=== PATIENT | female | born 1950 | race Hispanic/Latino ===

== ENCOUNTER 2017-02-01 09:41 | Outpatient (CLI) | payer MEDICARE ==
--- NOTE | 2017-02-01 10:03 | SJPRAD ---
PA AND LATERAL VIEWS CHEST: Date: 02/01/17 HISTORY: Cough. FINDINGS: The heart size is borderline. No focal areas of consolidation, pneumothorax, rylee pulmonary edema, o r pleural effusions are seen. There are mild degenerative changes in the spine. IMPRESSION: No radiographic evidence of acute cardiopulmonary process. POS: [facility]
--- NOTE | 2017-02-01 10:04 | SJPRAD ---
LUMBAR SPINE 3 VIEWS: Date: 02/01/17 HISTORY: Low back pain. FINDINGS/IMPRESSION: Mild degenerative changes are present. No fracture, subluxation, or bony destruction is identified. POS: [facility]
== END 2017-02-01 09:42 | disposition home or self-care (01) ==
LOC: MWLC RAD 09:41
PROVIDERS: ATTEND Family Medicine
DX: M54.5 Low back pain (principal); R05 Cough; M47.896 Other spondylosis, lumbar region

== ENCOUNTER 2017-02-08 09:25 | Outpatient (CLI) | payer MEDICARE ==
--- NOTE | 2017-02-08 15:46 | NM ---
WHOLE BODY BONE SCAN: 02/08/17 HISTORY: 66-year-old female with left breast cancer, malignant neoplasm of upper outer quadrant of the left fe male breast, lower back pain. RADIOPHARMACEUTICAL: 33 millicuries technetium 99m-MDP intravenously. FINDINGS: Correlation is made with the lumbar spine radiograph of 02/01/17. Increased uptake in the shoulders, elbows, wrist, and ankles are consistent with degenerative changes . No other abnormal areas of tracer localization is seen to suggest metastatic disease. Tracer excre tion through the kidneys is within normal limits. IMPRESSION: No evidence of osseous metastatic disease. POS: [facility]
== END 2017-02-08 09:26 | disposition home or self-care (01) ==
LOC: NM 09:25
PROVIDERS: ATTEND Internal Medicine Hematology & Oncology
DX: C50.919 Malignant neoplasm of unspecified site of unspecified female breast (principal); M53.3 Sacrococcygeal disorders, not elsewhere classified
CPT/HCPCS: 78306; A9503

== ENCOUNTER 2017-09-26 09:17 | Outpatient (CLI) | payer MEDICARE | END 2017-09-26 09:18 | disposition home or self-care (01) | LOC: BICMAMMO 09:17 | PROVIDERS: ATTEND Internal Medicine Hematology & Oncology | DX: Z08 Encounter for follow-up examination after completed treatment for malignant neoplasm (principal); Z85.3 Personal history of malignant neoplasm of breast | CPT/HCPCS: 77066; G0279 ==

== ENCOUNTER 2017-12-10 07:56 | Outpatient (CLI) | payer MEDICARE ==
--- NOTE | 2017-12-10 09:42 | ULT ---
RIGHT UPPER QUADRANT ULTRASOUND: Date: 12/10/17 HISTORY: Right upper quadrant pain. FINDINGS: The liver demonstrates homogeneous echotexture without focal mass or intrahepatic ductal dilatation. There are mobile shadowing gallstones with thickened gallbladder wall measuring about 4.0 mm. No jac cholecystic fluid is seen. The common duct measures 2.0 mm in diameter. The tail of the pancreas is n ot visualized. The visualized portions of the pancreas and the right kidney are unremarkable. No free fluid is seen in Morison's pouch. IMPRESSION: Cholelithiasis with gallbladder wall thickening. POS: [facility]
== END 2017-12-10 07:57 | disposition home or self-care (01) ==
LOC: BICULT 07:56
PROVIDERS: ATTEND Family Medicine
DX: R10.9 Unspecified abdominal pain (principal); K80.20 Calculus of gallbladder without cholecystitis without obstruction; K82.8 Other specified diseases of gallbladder
CPT/HCPCS: 76705

== ENCOUNTER 2018-10-03 13:39 | Outpatient (CLI) | payer MEDICARE ==
--- NOTE | 2018-10-03 14:22 | MMO ---
Bilateral MAMMO Bilat Diag DDI+JIMBO. CLINICAL HISTORY: Patient is 68 years old and is seen for diagnostic exam. The patient has no family history of breast cancer. The patient has a history of Excisional Breast Biopsy procedure revealed invasive ductal left breast carcinoma in March, and Stereotactic Core Biopsy procedure revealed invasive ductal left breast carcinoma in February,. The patient has a history of left Lumpectomy in March, - invasive ductal carcinoma and left Stereotatic Biopsy in February, - invasive ductal carcinoma. VIEWS: The views performed were: bilateral craniocaudal with tomosynthesis; bilateral mediolateral oblique with tomosynthesis; and bilateral mediolateral with tomosynthesis. FILMS COMPARED: The present examination has been compared to prior imaging studies performed at [facility] on 03/16/2015, 09/14/2015, 04/18/2016 and 09/26/2017. MAMMOGRAM FINDINGS: The breasts are heterogeneously dense, which could obscure a lesion on mammography. Finding 1: There are stable benign appearing calcifications seen in both breasts. Finding 2: There is a stable post-surgical scar seen in the left breast. There are no suspicious masses, suspicious calcifications, or new areas of architectural distortion. IMPRESSION: THERE IS NO MAMMOGRAPHIC EVIDENCE OF MALIGNANCY. A ROUTINE FOLLOW-UP MAMMOGRAM IN 1 YEAR IS RECOMMENDED. THE RESULTS OF THIS EXAM WERE SENT TO THE PATIENT. ACR BI-RADS Category 2 - Benign finding MAMMOGRAPHY NOTE: 1. A negative mammogram report should not delay a biopsy if a dominant of clinically suspicious mass is present. 2. Approximately 10% to 15% of breast cancers are not detected by mammography. 3. Adenosis and dense breasts may obscure an underlying neoplasm. Reported by: BONITA FELIZ MD Electonically Signed: [id number]
== END 2018-10-03 13:40 | disposition home or self-care (01) ==
LOC: BICMAMMO 13:39
PROVIDERS: ATTEND Internal Medicine Hematology & Oncology
DX: Z08 Encounter for follow-up examination after completed treatment for malignant neoplasm (principal); Z85.3 Personal history of malignant neoplasm of breast
CPT/HCPCS: 77066; G0279

== ENCOUNTER 2018-10-30 09:00 | Day surgery (SDC) | payer MEDICARE ==
[2018-10-29 11:58] VITALS: BMI 29.2
--- NOTE | 2018-10-29 14:15 | HP ---
ADDENDUM: HISTORY OF PRESENT ILLNESS: Cassy Mcbride is a 68-year-old female, who I saw on 01/28/2018, planning for laparoscopic cholecystectomy, now presents for the same operation. She is having symptoms of right upper quadrant pain with back radiation. She is followed by Dr. Unger. Ultrasound on 12/10/2017 reveals gallstones with gallbladder wall thickening and a 2 mm bile duct. CBC is normal on 08/27/2018. Comprehensive metabolic profile normal on 08/27/2018 with bilirubin of 1.5. Transaminases otherwise normal. MEDICATIONS: 1. Synthroid. 2. Glucosamine. 3. Vitamins. 4. Fish oil. 5. The patient's metformin has been discontinued 6 months ago. She controls her diabetes with diet. PAST MEDICAL HISTORY: Breast cancer in 2013, medically treated; hypothyroidism; diabetes mellitus, diet-controlled, metformin discontinued 6 months ago; hypertension; elevated cholesterol; neuropathy. PAST SURGICAL HISTORY: In 2015, colonoscopy, normal; hernia repair in 1993; blood transfusion in 1977; oophorectomy, unilateral, 1992; left breast, wide local excision, sentinel node biopsy in March 2014; MediPort placement in 1992. SOCIAL HISTORY: Tobacco, none. Alcohol, none. REVIEW OF SYSTEMS: Noncontributory. PHYSICAL EXAMINATION: VITAL SIGNS: Weight 138 pounds, height 55 inches, blood pressure 147/61, pulse 60, temperature 98.6 degrees. HEAD, EARS, EYES, NOSE AND THROAT: Unremarkable. LUNGS: Clear to auscultation. CARDIAC: Regular rate and rhythm without murmur or gallop. ABDOMEN: Soft and nontender. No masses. No hernias. EXTREMITIES: Unremarkable. No ankle edema. ASSESSMENT AND PLAN: Symptomatic cholelithiasis. We will recommend laparoscopic video cholecystectomy. Risks of infection, bleeding, visceral and biliary injury were previously discussed. Questions answered. Job ID: [id number]
[2018-10-30] MEDS ORDERED: Fentanyl 100 MCG/2 ML VIAL ONE ×3 (09:31→11:50)
[2018-10-30] MEDS ORDERED: Levofloxacin 500 mg/D5W 100 ml Premix Bag ONE (09:32)
[2018-10-30] MEDS ORDERED: Ketorolac Tromethamine 30 MG/ML VIAL ONE (09:32)
[2018-10-30 09:57] LABS: ALT (SGPT) 28 U/L (8-55); AST (SGOT) 30 U/L (5-34); Albumin 3.9 g/dL (3.4-4.8); Alkaline Phosphatase 152 U/L (40-150); Anion Gap 10 mmol/L (10-20); BUN (Urea Nitrogen) 12 mg/dL (9.8-20.1); Calc. Creatinine Clearance 77 mL/min (70-130); Calcium 9.5 mg/dL (7.8-10.44); Carbon Dioxide 26 mmol/L (23-31); Chloride 107 mmol/L (98-107); Estimated GFR-MDRD 87; Globulin 2.8 g/dL (2.4-3.5); Glucose 177 mg/dL (80-115); Potassium 3.7 mmol/L (3.5-5.1); Protein, Total 6.7 g/dL (6.0-8.3); Sodium 139 mmol/L (136-145)
[2018-10-30 09:58] LABS: Hemoglobin 15.1 g/dL (12.0-16.0); Mean Corpuscular HGB CONC 35.7 g/dL (32.0-36.0); Mean Corpuscular Hemoglobin 34.9 pg (27.0-31.0); Mean Corpuscular Volume 97.6 fL (78.0-98.0); Mean Platelet Volume 9.3 fL (7.4-10.4); Platelet Count 92 thou/uL (130-400); Red Blood Cell (RBC) Count 4.33 mill/uL (4.20-5.40); White Blood Cell (WBC) Count 3.5 thou/uL (4.8-10.8)
[2018-10-30 09:59] LABS: #Eosinphils 0.1 thou/uL (0.0-0.7); #Lymphocytes 1.6 thou/uL (1.20-3.40); #Monocytes 0.3 thou/uL (0.11-0.59); #Neutrophils 1.6 thou/uL (1.40-6.50); %Basophils 1.3 % (0.0-1.0); %Eosinophils 2.4 % (0.0-10.0); %Lymphocytes 43.8 % (21.0-51.0); %Monocytes 8.4 % (0.0-10.0); %Neutrophils 44.1 % (42.0-75.0)
[2018-10-30 10:01] LABS: Hemoglobin A1c 7.4 % (4.0-6.0)
[2018-10-30] MEDS ORDERED: Iothalamate Meglumine 60% 50 ML VIAL FS ONE (10:09)
[2018-10-30] MEDS ORDERED: Bupivacaine HCl 0.5%/Epinephrine 1:200,000/PF 30 ml Vial ONE (10:09)
[2018-10-30 10:40] LABS: Band 4 % (5-11); Eosinophils 4 % (0-10); Lymphocytes 36 % (21-51); MDiff Complete? YES; Monocytes 2 % (0-10); Neutrophil 40 % (42-75); Platelet Morphology Comment Appears Decreased; RBC Morphology Normal; Reactive Lymphocytes 13 % (0-10)
[2018-10-30] MEDS ORDERED: Promethazine HCl 25 MG/ML VIAL ONE (12:26)
[2018-10-30 13:18] LABS: HBCM Index 0.34 S/CO (0-0.79); HBSAg Index 0.14 S/CO (0-0.99); Hep A IgM AB Non-Reactive (NonReactive); Hep A IgM S/CO 0.33 S/CO (0-0.79); Hep B Surf Ag Non-Reactive S/CO (NonReactive); Hep C IgG Ab Non-Reactive (NonReactive); Hep C Index 0.06 S/CO (0-0.79); Hepatitis B Core IgM Abs Non-Reactive (NonReactive)
[2018-10-30] MEDS ORDERED: Ondansetron ODT 4 MG TAB ONE (13:30)
--- NOTE | 2018-10-30 14:23 | OP ---
DATE OF PROCEDURE: 10/30/2018 PREOPERATIVE DIAGNOSES: Chronic cholecystitis and cholelithiasis. POSTOPERATIVE DIAGNOSES: Chronic cholecystitis and cholelithiasis with cirrhosis. PROCEDURES PERFORMED: Laparoscopic video cholecystectomy, core liver biopsies, video photography of liver. ANESTHESIA: General, local 0.5% Marcaine with epinephrine 30 mL total volume used. DESCRIPTION OF PROCEDURE: The patient was taken to the operating room. Under general anesthesia, abdomen was prepared with ChloraPrep and draped in routine fashion. Local anesthetic was infiltrated in the skin and subcutaneous tissue at each port site. Infraumbilical incision was made. Pneumoperitoneum to 15 mmHg obtained with a Veress needle, replaced with a 5 port where the laparoscope was inserted. Right subxiphoid incision was made and 11 port placed. Right subcostal incision was made at midclavicular entrance lines and 5 port was placed. Liver appeared to be cirrhotic. Video photographs were made. Fundus of the gallbladder was grasped at the cephalad. Infundibulum was grasped and reflected laterally. Cystic artery and duct were dissected free. Critical view obtained. Cystic artery and duct were double clipped proximally and divided. Gallbladder was dissected free from liver bed, obtaining good hemostasis prior to division of final peritoneal attachments. Gallbladder and contents were removed, submitted to Pathology. Core liver biopsies from the right lobe of the were liver obtained x2 and submitted to pathology. Hemostasis was gained with the cautery. Irrigant and pneumoperitoneum evacuated. All instruments were removed and all skin incisions were approximated with interrupted subdermal 4-0 Monocryl and [place] glue applied. Job ID: [id number]
--- NOTE | 2018-10-30 17:00 | EKG ---
Test Reason : PREOP Blood Pressure : / mmHG Vent. Rate : 054 BPM Atrial Rate : 054 BPM P-R Int : 176 ms QRS Dur : 088 ms QT Int : 450 ms P-R-T Axes : 018 -43 023 degrees QTc Int : 426 ms Sinus bradycardia Left axis deviation Abnormal ECG When compared with ECG of 18-MAR-2014 10:51, No significant change was found Confirmed by DR. Cris SUNSHINE ([id number]) on 10/30/2018 4:59:29 PM Referred By: RISHI Confirmed By:DR. Cris SUNSHINE
== END 2018-10-30 15:31 | disposition home or self-care (01) ==
LOC: SDC 09:00
PROVIDERS: ATTEND Specialist
PROC: 0FB14ZX Excision of Right Lobe Liver, Percutaneous Endoscopic Approach, Diagnostic (ICD-10-PCS; principal; 2018-10-30)
PROC: 0FT44ZZ Resection of Gallbladder, Percutaneous Endoscopic Approach (ICD-10-PCS; 2018-10-30)
DX: K80.10 Calculus of gallbladder with chronic cholecystitis without obstruction (principal); K74.0 Hepatic fibrosis; K74.60 Unspecified cirrhosis of liver; K76.0 Fatty (change of) liver, not elsewhere classified; M79.7 Fibromyalgia; G47.33 Obstructive sleep apnea (adult) (pediatric); E03.9 Hypothyroidism, unspecified; I10 Essential (primary) hypertension; K21.9 Gastro-esophageal reflux disease without esophagitis; E11.40 Type 2 diabetes mellitus with diabetic neuropathy, unspecified; E78.00 Pure hypercholesterolemia, unspecified; Z79.899 Other long term (current) drug therapy; Z88.8 Allergy status to other drugs, medicaments and biological substances; Z91.012 Allergy to eggs; Z91.018 Allergy to other foods
CPT/HCPCS: 36415; 80053; 80074; 83036; 85025; 88304; 88307; 88313; 93005; 93010; J0131; J0670; J1610; J1885; J1956; J2550; J3010; Q0162

== ENCOUNTER 2018-11-29 15:04 | Emergency (ER) | payer MEDICARE ==
--- NOTE | 2018-11-29 15:38 | RAD ---
TWO VIEWS CHEST: DATE: 11/29/2018. PROVIDED CLINICAL HISTORY: Chest pain. FINDINGS: Comparison 02/01/2017. Cardiac silhouette appears enlarged. Vascular calcification is noted. The l ungs are hypoinflated, without definite focal consolidation, pleural fluid, or pneumothorax apparent. IMPRESSION: No evidence for an acute cardiopulmonary process. POS: [facility]
[2018-11-29 16:10] LABS: #Lymphocytes 0.6 thou/uL (1.20-3.40); #Monocytes 0.3 thou/uL (0.11-0.59); #Neutrophils 2.9 thou/uL (1.40-6.50); %Basophils 0.7 % (0.0-1.0); %Eosinophils 0.9 % (0.0-10.0); %Lymphocytes 16.3 % (21.0-51.0); %Monocytes 7.2 % (0.0-10.0); %Neutrophils 74.9 % (42.0-75.0); Hemoglobin 14.9 g/dL (12.0-16.0); Mean Corpuscular HGB CONC 35.5 g/dL (32.0-36.0); Mean Corpuscular Hemoglobin 35.4 pg (27.0-31.0); Mean Platelet Volume 10.1 fL (7.4-10.4); Platelet Count 77 thou/uL (130-400); RBC Distribution Width 11.9 % (11.5-14.5); Red Blood Cell (RBC) Count 4.19 mill/uL (4.20-5.40); White Blood Cell (WBC) Count 3.9 thou/uL (4.8-10.8)
[2018-11-29 16:17] LABS: PTT 25.7 SEC (22.9-36.1); Prothrombin Time 12.9 SEC (12.0-14.7)
[2018-11-29 16:28] LABS: ALT (SGPT) 49 U/L (8-55); AST (SGOT) 46 U/L (5-34); Alkaline Phosphatase 179 U/L (40-110); Anion Gap 15 mmol/L (10-20); BUN (Urea Nitrogen) 9 mg/dL (9.8-20.1); Bilirubin, Total 1.3 mg/dL (0.2-1.2); CK (CPK) 62 U/L (29-168); Calc. Creatinine Clearance 0 mL/min (70-130); Calcium 10.1 mg/dL (7.8-10.44); Carbon Dioxide 25 mmol/L (23-31); Chloride 102 mmol/L (98-107); Estimated GFR-MDRD 75; Globulin 3.1 g/dL (2.4-3.5); Glucose 357 mg/dL (80-115); Lipase 31 U/L (8-78); Potassium 3.9 mmol/L (3.5-5.1); Protein, Total 7.1 g/dL (6.0-8.3); Sodium 138 mmol/L (136-145)
--- NOTE | 2018-11-29 17:02 | CT ---
CT arteriogram chest with IV contrast and 3-D imaging HISTORY: Chest pain. Dyspnea. FINDINGS: There is good contrast opacification the pulmonary arteries and thoracic aorta with normal branching of the great vessels at the aortic arch. Scattered arterial calcification. Mild bibasilar atelectasis. No lobar consolidation or pneumothorax. No mediastinal adenopathy. Degenerative changes thoracic spine. Postoperative changes of the gallbladder fossa and left breast. IMPRESSION: No CT evidence of pulmonary embolus. Atherosclerosis.
[2018-11-29] MEDS ORDERED: Ketorolac Tromethamine 30 MG/ML VIAL ONE (17:28)
== END 2018-11-29 16:07 | disposition home or self-care (01) ==
LOC: ERS 15:04
DX: J98.11 Atelectasis (principal); K21.9 Gastro-esophageal reflux disease without esophagitis; E11.9 Type 2 diabetes mellitus without complications; Z79.84 Long term (current) use of oral hypoglycemic drugs; Z79.899 Other long term (current) drug therapy
CPT/HCPCS: 71046; 71275; 80053; 82550; 83690; 84484; 85025; 85610; 85730; 93005; 94760; 96374; J1885

== ENCOUNTER 2019-01-30 08:44 | Outpatient (CLI) | payer MEDICARE ==
--- NOTE | 2019-01-30 10:13 | ULT ---
EXAM: US Hepatic Doppler PROVIDED CLINICAL HISTORY: Cirrhosis, fatty liver. COMPARISON: Right upper quadrant ultrasound 12/10/2017. FINDINGS: There is slight peripheral nodular contour of the liver which can be seen with cirrhosis. Slightly co arsened echotexture of liver is present. No focal hepatic mass/lesion is identified. The spleen has a normal sonographic appearance and is normal in size. Gallbladder is not visualized related to patient's history of prior cholecystectomy. The common duct is normal in caliber measuring 0.4 cm in diameter. Limited visualized portions of the pancreas, visualized portions of the proximal abdominal aorta, and visualized portions of the IVC demonstrate a normal sonographic appearance. Hepatic Doppler evaluation was performed with spectral analysis and color flow demonstrating arterial waveforms are seen within the hepatic and splenic arteries. Normal directional flow within the portal, splenic, and hepatic veins. IMPRESSION: 1. Subtle peripheral nodular contour of the liver with slightly coarsened echo texture of the liver. Findings are suggestive of cirrhosis. 2. Normal directional flow is seen within the hepatic, portal, and splenic veins.
== END 2019-01-30 08:45 | disposition home or self-care (01) ==
LOC: BICULT 08:44
PROVIDERS: ATTEND Internal Medicine Gastroenterology
DX: K74.60 Unspecified cirrhosis of liver (principal); K76.0 Fatty (change of) liver, not elsewhere classified; R94.5 Abnormal results of liver function studies; K76.89 Other specified diseases of liver
CPT/HCPCS: 76705

== ENCOUNTER 2019-08-22 09:28 | Outpatient (CLI) | payer MEDICARE ==
--- NOTE | 2019-08-22 10:32 | ULT ---
Ultrasound hepatic Doppler duplex: HISTORY: 69-year-old female with cirrhosis TECHNIQUE: Grayscale, color-flow, and spectral analysis, of upper abdomen. FINDINGS: Liver: Nodular margins. Coarse echotexture of parenchyma.. Pancreas: Nonspecific sonographic appearance. No pancreatic ductal dilation. Gallbladder: Surgically absent. Common duct: 5 mm. Spleen: 10 x 5.5 x 5 cm. Hepatic veins: Hepatofugal flow with appropriate Doppler waveforms. Portal vein: Hepatopetal flow demonstrated in left portal vein with appropriate Doppler waveform. Rig ht portal vein not visualized. Main portal vein color Doppler signal not demonstrated. Weak pulse Doppler signal with probably hepatopetal flow. Hepatic artery: Normal pulsatile flow. Splenic vein: Not imaged No free fluid in right upper quadrant or left upper quadrant. IMPRESSION: 1. Hepatic cirrhosis. 2. No splenomegaly. 3. Poor visualization of portal vein. No overt signs of portal venous hypertension.
== END 2019-08-22 09:29 | disposition home or self-care (01) ==
LOC: BICULT 09:28
PROVIDERS: ATTEND Internal Medicine Gastroenterology
DX: K74.60 Unspecified cirrhosis of liver (principal); R94.5 Abnormal results of liver function studies
CPT/HCPCS: 76705

== ENCOUNTER 2019-12-23 09:57 | Outpatient (CLI) | payer MEDICARE ==
[2019-12-23 17:34] LABS: Bilirubin Neg (Negative); Blood, Urine 250 (Negative); Glucose, Urine (Dipstick) Normal (Negative); Ketone, Urine Negative (Negative); Leukocyte 25 (Negative); Nitrite Negative (Negative); Protein, Urine (Dipstick) 30 mg/dl (Neg-Trace)
[2019-12-23 17:35] LABS: Hemoglobin 13.3 g/dL (12.0-16.0); Mean Corpuscular HGB CONC 35.6 G/DL (32.0-36.0); Mean Corpuscular Volume 95.7 fl (80.0-100.0); Mean Platelet Volume 12.1 fl (7.4-10.4); Platelet Count 97 10x3/uL (130-400); Red Blood Cell (RBC) Count 3.91 10x6/uL (3.90-5.20); White Blood Cell (WBC) Count 3.4 10x3/uL (4.5-11.0)
[2019-12-23 17:45] LABS: Clarity Cloudy (Clear)
[2019-12-23 17:46] LABS: Anion Gap 12 mmol/L (10-20); BUN (Urea Nitrogen) 14 mg/dL (9.8-20.1); Calc. Creatinine Clearance 0 mL/min (70-130); Calcium 8.7 mg/dL (7.8-10.44); Carbon Dioxide 24 mmol/L (23-31); Chloride 108 mmol/L (98-107); Estimated GFR-MDRD Greater than 90; Glucose 115 mg/dL (80-115); Potassium 3.9 mmol/L (3.5-5.1); Sodium 140 mmol/L (136-145)
[2019-12-23 17:46] LABS: Urine Culture Reflex No No
[2019-12-23 17:48] LABS: Bacteria/HPF Rare-Few HPF (None Seen); RBC/HPF Greater than 50 HPF (0-3); Squamous Epithelial 0-3 HPF (0-3); WBC/HPF 0-3 HPF (0-3)
[2019-12-24 10:57] LABS: SARS-CoV-2 MS2 Positive; SARS-CoV-2 N Gene Negative; SARS-CoV-2 S Gene Negative; SARS-CoV-2 by NAA Not Detected (NotDetected); SARS-CoV-2 orf1ab Negative
== END 2019-12-23 09:58 | disposition home or self-care (01) ==
LOC: LABBT 09:57
PROVIDERS: ATTEND Urology
DX: Z01.818 Encounter for other preprocedural examination (principal); N20.1 Calculus of ureter; Z20.828 Contact with and (suspected) exposure to other viral communicable diseases
CPT/HCPCS: 80048; 81001; 85027; 87086; 93005; U0003; 87635; 93010

== ENCOUNTER 2019-12-26 10:46 | Day surgery (SDC) | payer MEDICARE ==
[2019-12-25 10:42] VITALS: BMI 28.1
[~2019-12-26 10:46] MED LIST: Lidocaine 1% PF 5 ML VIAL ONE; Metoclopramide HCl 10 MG/2 ML VIAL ONE; Ondansetron PF 4 MG/2 ML Vial ONE; PHENYLEPHRINE-NS 100 MCG/ML 10 ML SYRINGE ONE; PROPOFOL 200 MG/20 ML VIAL ONE
[2019-12-26] MEDS ORDERED: Levofloxacin 500 mg/D5W 100 ml Premix Bag ONE (11:40)
[2019-12-26] MEDS ORDERED: Fentanyl 100 MCG/2 ML VIAL ONE (13:48)
[2019-12-26] MEDS ORDERED: Iothalamate Meglumine 60% 50 ML VIAL FS ONE ×2 (14:03→14:16)
[2019-12-26] MEDS ORDERED: Famotidine/PF 20 mg/2ml Vial ONE (14:05)
[2019-12-26] MEDS ORDERED: Famotidine 20 MG TAB ONE (14:05)
[2019-12-26] MEDS ORDERED: Oxybutynin 5 MG TAB ONE (15:15)
--- NOTE | 2019-12-26 15:33 | RAD ---
EXAM: XR IVP Retrograde PROVIDED CLINICAL HISTORY: Hematuria, lower abdominal pain, right ureteral calculus. COMPARISON: CT abdomen and pelvis on 12/19/2019 and single view abdomen 12/19/2019 FINDINGS/IMPRESSION: 2 intraoperative fluoroscopic images of the abdomen are submitted for interpretation. Initial image d emonstrates guidewire in place with opacification of the right renal collecting system showing mild right hydronephrosis and hydroureter. Final image demonstrates a catheter or possibly ureteral stent in place with tip overlying the right renal pelvis. Calculus at the level of the right sacral ala seen on abdominal radiograph and CT exam is not well delineated on this study. Correlation with intra operative findings is recommended.
[2019-12-26] MEDS ORDERED: HYDROcodone/Acetaminophen 5/325 mg Tablet ONE ×2 (15:52→15:53)
--- NOTE | 2019-12-26 16:55 | OP ---
DATE OF PROCEDURE: 12/26/2019 PREOPERATIVE DIAGNOSIS: Right ureteral stone. POSTOPERATIVE DIAGNOSIS: Right ureteral stone. PROCEDURES PERFORMED: Right ureteroscopy with laser lithotripsy, basket extraction, retrograde pyelogram, intraoperative interpretation of radiologic imaging and 4.8 x 20 double-J ureteral stent with strings. ANESTHESIA: General. COMPLICATIONS: None. ESTIMATED BLOOD LOSS: None. SPECIMEN: Right ureteral stone. DESCRIPTION OF PROCEDURE: After informed consent, the patient was taken to the operating room, transferred to the table under her own power. Anesthesia was established. A time-out was performed, showing the correct patient, site, and procedure. Preoperative antibiotics were administered. She was prepped and draped in the lithotomy position. The semi-rigid ureteroscope was advanced through the urethra into the bladder. The right ureteral orifice was cannulated with a wire, which was passed up to what appeared to be the lower pole renal pelvis. The scope was withdrawn and reinserted alongside the wire into the distal ureter and a retrograde pyelogram was performed showing good filling of the lower pole pelvis and some contrast entering the upper pole. The scope was passed into the mid ureter, where the stone was identified. The 273 micron laser fiber was used to dust the stone down into one piece, it was small enough to be removed. The 1.9 cm Nitinol basket was used to retrieve this piece, which was passed off as specimen. The scope was then reinserted and passed up to the lower pole renal pelvis noting no further stone fragments or abnormalities. A completion retrograde was performed and then a 20 x 4.8 double-J ureteral stent with strings was passed over the wire into the lower pole pelvis with a curl in the kidney and curl in the bladder under fluoroscopic guidance. The patient was then awoken from anesthesia, transferred back to her hospital bed, and taken to PACU in stable condition, where she was discharged home upon recovery. Job ID: [id number]
[2020-01-05 14:13] LABS: CA Oxalate Monohydrate 100 % (.); Color Brown (.); Stone Weight 55 mg (.)
== END 2019-12-26 17:52 | disposition home or self-care (01) ==
LOC: SDC 10:46
PROVIDERS: ATTEND Urology
PROC: 0TC68ZZ Extirpation of Matter from Right Ureter, Via Natural or Artificial Opening Endoscopic (ICD-10-PCS; principal; 2019-12-26)
PROC: 0T768DZ Dilation of Right Ureter with Intraluminal Device, Via Natural or Artificial Opening Endoscopic (ICD-10-PCS; 2019-12-26)
DX: N13.2 Hydronephrosis with renal and ureteral calculous obstruction (principal); Q62.5 Duplication of ureter; E11.40 Type 2 diabetes mellitus with diabetic neuropathy, unspecified; M79.7 Fibromyalgia; E03.9 Hypothyroidism, unspecified; K21.9 Gastro-esophageal reflux disease without esophagitis; I10 Essential (primary) hypertension; Z79.84 Long term (current) use of oral hypoglycemic drugs; Z79.899 Other long term (current) drug therapy; Z88.8 Allergy status to other drugs, medicaments and biological substances; Z91.011 Allergy to milk products; Z91.012 Allergy to eggs; Z91.018 Allergy to other foods
CPT/HCPCS: 74420; 82365; 88300; J1956; J2405; J2704; J2765; J3010; S0028

== ENCOUNTER 2020-01-14 13:19 | Outpatient (CLI) | payer MEDICARE ==
--- NOTE | 2020-01-14 14:08 | ULT ---
Renal ultrasound: 01/14/2020 COMPARISON: None HISTORY: Right-sided renal stone disease TECHNIQUE: Multiplanar grayscale sonographic imaging of the kidneys and urinary bladder obtained. FINDINGS: The right kidney measures 12.1 x 4.5 x 4.7 cm and demonstrates no discrete stone, hydroneph rosis, or mass lesion. Cortical thickness is approximately 1.2 cm. The left kidney measures 10.7 x 4.6 x 4.7 cm and demonstrates no evidence for stone, hydronephrosis, or mass. Urinary bladder is grossly unremarkable, partially empty. IMPRESSION: No hydronephrosis.
== END 2020-01-14 13:20 | disposition home or self-care (01) ==
LOC: BICULT 13:19
PROVIDERS: ATTEND Urology
DX: N20.1 Calculus of ureter (principal)
CPT/HCPCS: 76770

== ENCOUNTER 2020-03-18 09:07 | Outpatient (CLI) | payer MEDICARE ==
--- NOTE | 2020-03-18 11:56 | ULT ---
HEPATIC ULTRASOUND WITH DOPPLER: INDICATION: Cirrhosis. FINDINGS: The liver shows a coarsened echotexture. No focal liver mass. Ultrasound with color Doppler and spectral analysis performed on the hepatic vessels. Portal veins, hepatic veins, hepatic artery, splenic vein, and splenic artery all show normal blood flow. The pancreas is unremarkable. Spleen appears upper normal size and otherwise unremarkable. The yang ent is status post cholecystectomy. The common bile duct is normal caliber. The visualized aorta and IVC appear unremarkable and show normal blood flow. Kidneys are not imaged. IMPRESSION: Unremarkable hepatic ultrasound and Doppler. Hepatic vessels show normal directional blood flow with color Doppler and spectral analysis. POS: [facility]
== END 2020-03-18 09:08 | disposition home or self-care (01) ==
LOC: BICULT 09:07
PROVIDERS: ATTEND Internal Medicine Gastroenterology
DX: K74.60 Unspecified cirrhosis of liver (principal)
CPT/HCPCS: 76705

== ENCOUNTER 2020-07-26 08:53 | Outpatient (CLI) | payer MEDICARE | END 2020-07-26 08:54 | disposition home or self-care (01) | LOC: BICRAD 08:53 | PROVIDERS: ATTEND Urology | DX: Z87.442 Personal history of urinary calculi (principal) | CPT/HCPCS: 74018 ==

== ENCOUNTER 2021-02-09 18:06 | Emergency (ER) | payer MEDICARE ==
[2021-02-09 18:32] LABS: #Eosinphils 0.1 thou/uL (0.0-0.7); #Lymphocytes 1.5 thou/uL (1.20-3.40); #Monocytes 0.3 thou/uL (0.11-0.59); #Neutrophils 1.3 thou/uL (1.40-6.50); %Basophils 1.1 % (0.0-1.0); %Eosinophils 3.4 % (0.0-10.0); %Lymphocytes 46.8 % (21.0-51.0); %Monocytes 8.1 % (0.0-10.0); %Neutrophils 40.5 % (42.0-75.0); Hemoglobin 13.3 g/dL (12.0-16.0); Mean Corpuscular HGB CONC 36.2 g/dL (32.0-36.0); Mean Corpuscular Hemoglobin 37.1 pg (27.0-31.0); Mean Platelet Volume 8.6 fL (7.4-10.4); Platelet Count 99 thou/uL (130-400); RBC Distribution Width 11.5 % (11.5-14.5); Red Blood Cell (RBC) Count 3.58 mill/uL (4.20-5.40); White Blood Cell (WBC) Count 3.3 thou/uL (4.8-10.8)
[2021-02-09 19:00] LABS: ALT (SGPT) 30 U/L (8-55); AST (SGOT) 31 U/L (5-34); Albumin 3.4 g/dL (3.4-4.8); Alkaline Phosphatase 100 U/L (40-110); Anion Gap 10 mmol/L (10-20); BUN (Urea Nitrogen) 13 mg/dL (9.8-20.1); Bilirubin, Total 1.6 mg/dL (0.2-1.2); Calc. Creatinine Clearance 0 mL/min (70-130); Calcium 9.6 mg/dL (7.8-10.44); Carbon Dioxide 25 mmol/L (23-31); Chloride 109 mmol/L (98-107); Glucose 195 mg/dL (83-110); Lipase 42 U/L (8-78); Potassium 3.8 mmol/L (3.5-5.1); Protein, Total 6.4 g/dL (5.8-8.1); Sodium 140 mmol/L (136-145)
[2021-02-09 21:26] LABS: Bilirubin Negative (Negative); Blood, Urine Negative (Negative); Clarity Turbid (Clear); Glucose, Urine (Dipstick) Normal (Negative); Ketone, Urine Negative (Negative); Leukocyte 75 Leu/uL (Negative); Nitrite Negative (Negative); Protein, Urine (Dipstick) Negative (Neg-Trace); RBC/HPF 0-3 HPF (0-3); Renal Epithelial 0-3 HPF (None Seen); pH, Urine 7.5 (5.0-9.0)
[2021-02-09 21:43] LABS: Bacteria/HPF Rare-Few HPF (None Seen)
== END 2021-02-09 23:38 | disposition home or self-care (01) ==
LOC: ERS 18:06
DX: M79.3 Panniculitis, unspecified (principal); E11.9 Type 2 diabetes mellitus without complications
CPT/HCPCS: 36415; 74177; 80053; 81003; 81015; 83690; 85025

== ENCOUNTER 2021-02-24 09:40 | Outpatient (CLI) | payer MEDICARE | END 2021-02-24 09:41 | disposition home or self-care (01) | LOC: BICRAD 09:40 | PROVIDERS: ATTEND Family Medicine | DX: M25.512 Pain in left shoulder (principal); C50.912 Malignant neoplasm of unspecified site of left female breast ==

== ENCOUNTER 2021-07-27 07:00 | Outpatient (CLI) | payer MEDICARE | END 2021-07-27 07:01 | disposition home or self-care (01) | LOC: BICULT 07:00 | PROVIDERS: ATTEND Internal Medicine Gastroenterology | DX: K74.60 Unspecified cirrhosis of liver (principal); R94.5 Abnormal results of liver function studies; R93.2 Abnormal findings on diagnostic imaging of liver and biliary tract | CPT/HCPCS: 76705 ==

== ENCOUNTER 2021-10-25 21:21 | Emergency (ER) | payer MEDICARE, OTHER ==
[~2021-10-25 21:21] MED LIST changes: +Iopamidol 370 76% 100 ML VIAL ONE; -Lidocaine 1% PF 5 ML VIAL ONE; -Metoclopramide HCl 10 MG/2 ML VIAL ONE; -Ondansetron PF 4 MG/2 ML Vial ONE; -PHENYLEPHRINE-NS 100 MCG/ML 10 ML SYRINGE ONE; -PROPOFOL 200 MG/20 ML VIAL ONE
[2021-10-25 22:21] LABS: Hemoglobin 14.5 g/dL (12.0-16.0); Mean Corpuscular Hemoglobin 35.5 pg (27.0-31.0); RBC Distribution Width 11.8 % (11.5-14.5); Red Blood Cell (RBC) Count 4.08 mill/uL (4.20-5.40)
[2021-10-25 22:27] LABS: ALT (SGPT) 25 U/L (8-55); AST (SGOT) 33 U/L (5-34); Albumin 3.7 g/dL (3.4-4.8); Alkaline Phosphatase 99 U/L (40-110); Anion Gap 15 mmol/L (10-20); BUN (Urea Nitrogen) 17 mg/dL (9.8-20.1); Bilirubin, Total 1.9 mg/dL (0.2-1.2); Calc. Creatinine Clearance 0 mL/min (70-130); Calcium 9.8 mg/dL (7.8-10.44); Carbon Dioxide 24 mmol/L (23-31); Chloride 105 mmol/L (98-107); Estimated GFR 59; Globulin 3.2 g/dL (2.4-3.5); Glucose 360 mg/dL (83-110); Lipase 35 U/L (8-78); Potassium 3.5 mmol/L (3.5-5.1); Protein, Total 6.9 g/dL (5.8-8.1); Sodium 140 mmol/L (136-145)
[2021-10-25 22:36] LABS: #Lymphocytes 0.5 thou/uL (1.20-3.40); #Monocytes 0.2 thou/uL (0.11-0.59); #Neutrophils 3.3 thou/uL (1.40-6.50); %Basophils 0.4 % (0.0-1.0); %Eosinophils 0.1 % (0.0-10.0); %Lymphocytes 12.6 % (21.0-51.0); %Monocytes 4.8 % (0.0-10.0); %Neutrophils 82.2 % (42.0-75.0); Mean Platelet Volume 9.6 fL (7.4-10.4); Platelet Count 103 thou/uL (130-400); Platelet Morphology Comment Appears Decreased
[2021-10-25 23:48] LABS: Bacteria/HPF None Seen HPF (None Seen); Bilirubin Negative (Negative); Blood, Urine 3+ (Negative); Clarity Turbid (Clear); Glucose, Urine (Dipstick) Greater than 1000 mg/dL (Negative); Ketone, Urine Negative (Negative); Leukocyte Negative Leu/uL (Negative); Nitrite Negative (Negative); Protein, Urine (Dipstick) 50 mg/dL (Neg-Trace); RBC/HPF Greater than 50 HPF (0-3); Specific Gravity, Urine 1.033 (1.002-1.036); Squamous Epithelial 0-3 HPF (0-3); Urobilinogen Normal mg/dL (Less than 2); WBC/HPF 21-50 HPF (0-3); Yeast-Budding 1+ HPF (None Seen)
== END 2021-10-26 01:05 | disposition home or self-care (01) ==
LOC: ERS 21:21
DX: N13.2 Hydronephrosis with renal and ureteral calculous obstruction (principal); E11.9 Type 2 diabetes mellitus without complications; Z85.3 Personal history of malignant neoplasm of breast
CPT/HCPCS: 36415; 74177; 80053; 81003; 81015; 83690; 85025; Q9967

== ENCOUNTER 2023-03-06 08:18 | Outpatient (CLI) | payer OTHER | END 2023-03-06 08:19 | disposition home or self-care (01) | LOC: BICULT 08:18 | PROVIDERS: ATTEND Internal Medicine Gastroenterology | DX: Z11.59 Encounter for screening for other viral diseases (principal); K74.60 Unspecified cirrhosis of liver; K75.81 Nonalcoholic steatohepatitis (NASH); R10.31 Right lower quadrant pain; K76.6 Portal hypertension | CPT/HCPCS: 76705 ==